=== PATIENT | male | born 2000 | race Caucasian/White ===

== ENCOUNTER 2023-03-29 12:10 | Emergency (ER) | payer OTHER ==
[~2023-03-29] VITALS: Ht 167.6 cm; Wt 74.8 kg
[2023-03-29 13:00] VITALS: BP 130/78
[2023-03-29] MEDS ORDERED: CEPH500 PO (13:15)
[2023-03-29] MEDS ORDERED: SULTRIDS PO (13:15)
== END 2023-03-29 13:00 ==
LOC: ER 12:10
DX: L03.113 Cellulitis of right upper limb (principal)
CPT/HCPCS: 87070; 87075; 87077; 87186; 87205; 99282